=== PATIENT | female | born 1970 | race Caucasian/White ===

== ENCOUNTER 2024-10-12 06:25 | Day surgery (SDC) | payer OTHER, SELFPAY ==
[2024-09-29 09:15] LABS: Hematocrit 39.8 % (37.0-47.0); Hemoglobin 13.4 g/dL (12.0-16.0); Mean Corp Hgb Conc. 33.7 g/dL (33.0-37.0); Mean Corpuscular Hgb 28.3 pg (27.0-31.0); Mean Corpuscular Volume 84.1 fL (81.0-99.0); Mean Platelet Volume 10.2 fL (7.4-10.4); Platelet Count 408 10^3/uL (130-400); Red Blood Cell Count 4.73 10^6/uL (4.20-5.40); Red Cell Dist. Width 12.5 % (11.5-14.5); White Blood Cell Count 6.5 10^3/uL (4.8-10.8)
[2024-09-29 09:49] LABS: Blood Urea Nitrogen 10 mg/dl (7-17); Calcium 9.7 mg/dl (8.4-10.2); Carbon Dioxide 25 mmol/L (22-30); Chloride 102 mmol/L (98-107); Glucose 86 mg/dl (70-99); Potassium 4.2 mmol/L (3.5-5.1); Sodium 138 mmol/L (135-145); eGFR > 60.00
[2024-09-29 13:38] VITALS: BMI 28.1
[2024-10-12] VITALS (9 sets, daily range): BP systolic 114–137; BP diastolic 51–76; BMI 28.1
[2024-10-12] MEDS: Pyridium 200 MG PO (09:29)
[2024-10-12] MEDS: HEPARIN 5000 UNITS SC (09:29)
[2024-10-12] MEDS: NORMOSOL-R/PLASMALYTE-A 1000 IV (09:37)
== END 2024-10-12 19:24 | disposition home or self-care (01) ==
LOC: SDS 06:25
PROVIDERS: ATTENDING PHYSICIAN Obstetrics & Gynecology; FAMILY PHYSICIAN Nurse Practitioner Adult Health
DX: N81.4 Uterovaginal prolapse, unspecified (principal); N93.9 Abnormal uterine and vaginal bleeding, unspecified; N39.3 Stress incontinence (female) (male)
CPT/HCPCS: 58571; 57283; 57250; 88305; 36415; 80048; 85027; 86850; 86900; 86901; 88341; 88342; 93005; C1713; J1580

== ENCOUNTER 2025-01-12 06:21 | Day surgery (SDC) | payer OTHER, SELFPAY ==
[2025-01-12 09:20] VITALS: BP 151/94
--- NOTE | 2025-01-12 10:00 | PTCARENOTE ---
Patient stated that she attempted suicide in the past. When asking patient when she attempted suicide she stated it was in her teens and that she does not currently feel suicidal and does not feel down or depressed or hopeless.
[2025-01-12] MEDS: NORMOSOL-R/PLASMALYTE-A 1000 IV (10:19)
[2025-01-12 15:35] VITALS: BP 122/66
--- NOTE | 2025-01-12 15:47 | W.IMMPOSTOP ---
Surgical Immed Post Op Note
-
Primary Surgeon: LAURI Alas MD
Assisting Surgeon:
Pre-op Diagnosis: Macromastia
Post-op Diagnosis: Same
Procedure Performed: Bilateral breast reduction with liposuction to the lateral flanks
Anesthesia Type: General
Specimen / Cultures: Bilateral breast tissue
Estimated Blood Loss: 30 cc
Complications: None
Operative Findings: As expected
--- NOTE | 2025-01-12 15:48 | OR.RPT ---
Operative Report
Operative Report
Date of surgery: 01/12/2025
Surgeon: LAURI Alas MD
Preoperative diagnosis: Macromastia, intermittent intertrigo, upper neck and back pain
Postoperative diagnosis: Same
Procedure:
1. Bilateral breast reduction (insurance)
2. Suction assisted lipectomy of trunk (cosmetic)
Anesthesia: General
Complications: None
EBL: 30 cc
Specimens: Right and left breast tissue
Indication for procedure: Patient is a 54-year-old female with a longstanding history of large pendulous breast. She is considered the surgery for breast reduction for many many years. In consultation, she met criteria for medical necessity due to
her large pendulous breasts, intermittent rashing at the folds and upper neck and back pain on amenable to conservative treatments. Risk of the procedure were reviewed at length including compromise of nipple areolar complex, asymmetry, hematoma,
seroma, need for repeat procedure and infection. Additionally, we discussed the role of liposuction particularly to the lateral breast and chest wall in order to improve the contour and optimize the results. She elected to have this performed
cosmetically. All risks were reviewed at length including sensation changes and anticipated scar burden. Consents were signed accordingly.
Procedure detail: Patient was identified preoperatively and the surgical site was confirmed to be the bilateral breast and lateral chest wall. Patient was marked in the upright position and the traditional superior medial pedicle Feng pattern
breast reduction. The relative areas lipodystrophy and lateral chest wall were marked out. Consents were confirmed and the patient was taken back to the operating room and placed supine on table. Anesthesia was induced and the patient was prepped
and draped in the usual sterile fashion using ChloraPrep solution. Timeout for patient safety was performed was confirmed the bilateral SCDs were in place and preoperative antibiotics had been administered. The procedure began with the injection
1% lidocaine with epinephrine along the inferior folds. A [employer] cutter was then used to margi the nipple areolar complex and the markings were incised with a 15 blade. The right breast was placed under a temporary tourniquet and the superior
medial pedicle was de-epithelialized. The tourniquet was released and Bovie electrocautery was used to dissect out the pedicle down to the chest wall. The redundant inferior and lateral breast tissue and skin were then removed and sent for
pathology. A total of approximately 800 g was removed from the right side. Meticulous hemostasis was ensured and dilute Marcaine blocks were performed in the pectoralis and intercostal muscles. The right breast was tentatively closed and
attention was drawn to the left side. The exact same procedure was performed on the left side. The incisions were made with a 15 blade and the nipple was marked with a [employer] cutter. Breast was placed under temporary tourniquet and the D
epithelization of the pedicle commenced. The tourniquet was released and the pedicle was created with Bovie electrocautery. The redundant inferior and lateral breast tissue was then removed and sent for pathology. Similarly, just under 800 g was
removed from the side. Meticulous hemostasis was ensured and blocks were performed. The breast was tentatively closed and the patient was sat upright to evaluate the relative symmetry. It was determined that an appropriate symmetry of been
achieved. The lateral contours were then marked out for defining with liposuction. Tumescent solution was injected into the bilateral lateral breast 3 axillary folds and lateral chest wall. This was done through a series of poke holes. An
appropriate amount of time was waited while the bilateral breast were being closed. A series of 2-0 Vicryl's, 3-0 Monocryl, INSORB stapler, 4-0 Monocryl were used to close the bilateral breast and inset the nipple areolar complex. At the end of
inset, the bilateral nipple areolar complex were well-perfused in appearance without evidence of venous congestion. Attention was then drawn to the areas of lipodystrophy where suction assisted lipectomy was performed. This was done in [facility] E
liposuction technique first by them by aspirating them by equilibrating. The access sites were all closed with 5-0 fast. The patient tolerated the procedure well, was performed out complication. All counts were correct at the end of
the case. The patient was given sterile dressings and subsequently extubated taken the PACU for further care. Surgical bra was placed for compression.
[2025-01-12 16:00] VITALS: BP 109/70
[2025-01-12 16:30] VITALS: BP 121/67
== END 2025-01-12 17:23 | disposition home or self-care (01) ==
LOC: SDS 06:21
PROVIDERS: ATTENDING PHYSICIAN Surgery Plastic and Reconstructive Surgery
DX: N62 Hypertrophy of breast (principal); L30.4 Erythema intertrigo; M54.2 Cervicalgia; M54.89 Other dorsalgia; L82.1 Other seborrheic keratosis
CPT/HCPCS: 19318; 15877; 88305